=== PATIENT | male | born 1935 | race Caucasian/White ===

== ENCOUNTER 2024-04-19 10:19 | Emergency (ER) | payer OTHER ==
[2024-04-19 10:33] VITALS: TEMP 99; BMI 24.2
[2024-04-19] MEDS ORDERED: LIDOCAINE 4% PATCH TP ONE (11:49)
[2024-04-19] MEDS: LIDOCAINE 4% PATCH TP ONE (11:51)
[2024-04-19 14:11] VITALS: BP 137/88; PULSE 87; RESP 19
[2024-04-19] MEDS ORDERED: LIDOCAINE PATCH REMOVAL MC ONE (22:00)
== END 2024-04-19 14:11 | disposition home or self-care (01) ==
LOC: JER 10:19
DX: M54.50 Low back pain, unspecified (principal); B02.9 Zoster without complications
CPT/HCPCS: 72170-TC-FY; 73521-TC-FY; 73562-TC-RT-FY; 73590-TC-RT-FY; 99284-25